=== PATIENT | female | born 1950 | race African-American/Black ===

== ENCOUNTER 2017-09-08 17:03 | Emergency (ER) | payer MEDICARE, MEDICAID ==
[~2017-09-08] VITALS: Ht 165.1 cm; Wt 53.0 kg
[~2017-09-08 17:03] MED LIST: ASPI-1159; FLEXERIL; NORCO; PEPCID; PRAVASTATIN
[2017-09-08] MEDS ORDERED: KETOROLAC 60MG/2ML VIAL IM ONE (20:15)
[2017-09-08 20:40] LABS: BASOPHILS % 0.6 % (0.0-2.0); EOSINOPHILS % 1.2 % (0.0-5.0); HEMATOCRIT. 36.5 % (36.0-48.0); HEMOGLOBIN. 12.4 g/dL (12.0-16.0); LYMPHOCYTES % 18.5 % (20.0-50.0); MEAN CORPUSCULAR HEMOGLOBIN 33.8 pg (28.0-32.0); MEAN CORPUSCULAR VOLUME 99.4 fL (81.0-99.0); MONOCYTES % 9.5 % (2.0-8.0); NEUTROPHILS % 70.2 % (40.0-76.0); PLATELET 159 x1000/uL (130-400); RED BLOOD CELL COUNT 3.67 mill/uL (4.2-5.4); RED CELL DISTRIBUTION WIDTH 13.2 % (11.6-14.6)
[2017-09-08 20:42] LABS: CHLORIDE 104 mEq/L (98-107)
[2017-09-08 22:21] VITALS: BP 141/91
== END 2017-09-08 22:21 | disposition home or self-care (01) ==
LOC: ER 17:03
DX: M54.40 Lumbago with sciatica, unspecified side (principal); G89.29 Other chronic pain; R42 Dizziness and giddiness; I10 Essential (primary) hypertension; J45.909 Unspecified asthma, uncomplicated; Z88.0 Allergy status to penicillin; Z88.5 Allergy status to narcotic agent; Z88.8 Allergy status to other drugs, medicaments and biological substances
CPT/HCPCS: 36415; 80048; 83735; 84484; 85025; 93005; 96372; 99285; J1885